=== PATIENT | male | born 1980 | race Caucasian/White ===

== ENCOUNTER 2023-11-05 16:11 | Emergency (ER) | payer OTHER ==
[~2023-11-05] VITALS: Ht 180.3 cm; Wt 81.0 kg
[2023-11-05 16:22] VITALS: BP 116/70; PULSE 72; RESP 20; TEMP 97.9; O2SAT 98
== END 2023-11-05 18:08 | disposition home or self-care (01) ==
LOC: ER 16:11
DX: S61.412A Laceration without foreign body of left hand, initial encounter (principal); Z88.2 Allergy status to sulfonamides; X58.XXXA Exposure to other specified factors, initial encounter; Y93.89 Activity, other specified; Y92.89 Other specified places as the place of occurrence of the external cause; Y99.8 Other external cause status
CPT/HCPCS: 12001; 99282